=== PATIENT | male | born 1965 | race Caucasian/White ===

== ENCOUNTER 2016-07-15 01:44 | Emergency (ER) | payer OTHER ==
[~2016-07-15] VITALS: Ht 180.3 cm; Wt 102.1 kg
[~2016-07-15 01:44] MED LIST: IMITREX50 MG PO; MICROZIDE12.5 MG PO; MOTRIN600 M1; NORCO; NORCO 10/325 MG1 TAB; NORCO 10/325 MG1 TAB PO; NORVASC5 MG PO; SOMA350 M1; SOMA350 MG PO; VICODIN 5/500 M1 TAB PO
[2016-07-15 01:48] VITALS: BP 148/112
--- NOTE | 2016-07-15 01:57 | NUR ---
TO ER BED 6
--- NOTE | 2016-07-15 02:02 | NUR ---
PT IS 50/M BIB TO ED WITH C/O TESTICULAR PAIN X 2 DAYS. PT STATES MED HX. BPH, LIVER CIRRHOSIS, HEP C. DENIES N/V/D; SKIN IS PINK/WARM/DRY; AAOX4; LUNGS CLEAR BL; HR EVEN AND REGULAR; PT DENIES ANY FEVER, CP, SOB, OR COUGH AT THIS TIME; PATIENT STATES PAIN OF 10/10 AT THIS TIME; VSS; PATIENT POSITIONED FOR COMFORT; HOB ELEVATED; BEDRAILS UP X2; BED DOWN. ER MD MADE AWARE OF PT STATUS.
[2016-07-15] MEDS ORDERED: ONDANSETRON 4 MG/2 ML VIAL IVP ONE ×2 (02:15→03:55)
[2016-07-15] MEDS ORDERED: MORPHINE SULFATE 4 MG/ML SYR IVP ONE ×2 (02:15→03:55)
[2016-07-15] MEDS ORDERED: NACL 0.9% 1,000 ML IV ONE (02:15)
--- NOTE | 2016-07-15 03:40 | NUR ---
PT BACK ON UNIT FROM CT
[2016-07-15] MEDS ORDERED: KETOROLAC 30 MG/ML VIAL IVP ONE (03:55)
[2016-07-15 05:06] VITALS: BP 132/96
--- NOTE | 2016-07-15 05:07 | NUR ---
Patient discharged with v/s stable. Written and verbal after care instructions given and explained. Patient alert, oriented and verbalized understanding of instructions. Ambulatory with steady gait. All questions addressed prior to discharge. ID band removed. Patient advised to follow up with PMD. Rx of NAPROSYN, NORCO given. Patient educated on indication of medication including possible reaction and side effects. Opportunity to ask questions provided and answered.
== END 2016-07-15 05:07 | disposition home or self-care (01) ==
LOC: MED 01:44
DX: R10.31 Right lower quadrant pain (principal); N50.811 Right testicular pain
CPT/HCPCS: 36415; 74176; 76870; 80053; 81001; 83690; 85025; 96361; 96374; 96375; 96376; 99285; J1885; J2270; J2405; J7030